=== PATIENT | female | born 1955 | race Caucasian/White ===

== ENCOUNTER → 2017-03-10 | Outpatient (CLI) | payer BC, OTHER ==
[2015-08-29 21:20] VITALS: BP 107/60
[~2017-03-10] MED LIST: ASPI-630 PO; CLOP75TA57 PO; CRESTOR40 MG PO; DEXL60CA2 PO; LISI40TA PO; NEBI10TA3 PO; POTA10CA PO; SPIR25TA3 PO; TICA90TA PO
--- NOTE | 2017-03-10 10:46 | RAD ---
Bone densitometry scan, 03/10/2017: History: Postmenopausal, possible osteoporosis The lumbar spine and right hip were examined utilizing a DEXA technique. The bone mineral density in the lumbar spine as measured from the L1-L4 levels is 0.93 g/sq cm. This is a T score of -2.1 compatible with osteopenia. The total T score at the right hip is -0.8 which is in the normal range. IMPRESSION: Osteopenia in the lumbar spine.
== END | disposition home or self-care (01) ==
LOC: DXRAD 09:55
PROVIDERS: ATTEND Physician Assistant
DX: M85.88 Other specified disorders of bone density and structure, other site (principal); M81.0 Age-related osteoporosis without current pathological fracture; Z78.0 Asymptomatic menopausal state
CPT/HCPCS: 77080

== ENCOUNTER → 2017-04-10 | Outpatient (CLI) | payer BC, OTHER ==
[2015-08-29 21:20] VITALS: BP 107/60
--- NOTE | 2017-04-10 15:01 | RAD ---
Renal ultrasound, 04/10/2017: History: Cystitis, recurrent UTIs The right kidney measures 9.8 cm in length while the left kidney measures 10.4 cm. There is no evidence of hydronephrosis or a renal mass. The renal parenchymal echogenicity is within normal limits. Limited views of the partially filled urinary bladder show no abnormality. IMPRESSION: No significant renal abnormality is detected.
== END | disposition home or self-care (01) ==
LOC: US 10:02
PROVIDERS: ATTEND Urology
DX: N30.10 Interstitial cystitis (chronic) without hematuria (principal); Z87.440 Personal history of urinary (tract) infections
CPT/HCPCS: 76770

== ENCOUNTER → 2017-05-11 | Outpatient (CLI) | payer BC, OTHER ==
[2015-08-29 21:20] VITALS: BP 107/60
--- NOTE | 2017-05-11 11:02 | RAD ---
DATE: 05/11/2017 EXAM: MAMMO JANET DIAG LT, BREAST LEFT HISTORY: 6 month follow-up COMPARISON: Screening examination November 14, 2016. Note is made of the diagnostic examination November 17, 2016 This study was interpreted with the benefit of Computerized Aided Detection (CAD). FINDINGS: Breast Density: HETERO The breast parenchyma Is heterogeneiously dense, which could reduce sensitivity of mammography. Breast parenchyma level C. On the MLO view of the left breast there is a well-defined mass superiorly. This is best demonstrated on the janet images, MLO image, image 40. No additional finding in the left breast is seen. Targeted ultrasound was performed of the left breast. At the 4:00 position of the breast 3 cm from the nipple is a well-defined oval mass compatible with a cyst measuring approximately 7 mm. It is not certain that this represents the mass that was seen on mammography. The mammographic mass measuring approximately 1.7 cm. IMPRESSION: Probable benign findings. Follow-up bilateral mammography is suggested in 6 months. Follow-up targeted ultrasound should also be considered. BI-RADS CATEGORY: 3 PROBABLE BENIGN FINDING(S-SHORT INTERVAL FOLLOW-UP SUGGESTED RECOMMENDED FOLLOW-UP: 6M 6 MONTH FOLLOW-UP PQRS compliance statement: Patient information was entered into a reminder system with a target due date October for the next mammogram. Mammography is a sensitive method for finding small breast cancers, but it does not detect them all and is not a substitute for careful clinical examination. A negative mammogram does not negate a clinically suspicious finding and should not result in delay in biopsying a clinically suspicious abnormality. "Our facility is accredited by the [employer] Mammography Program."
== END | disposition home or self-care (01) ==
LOC: MAMMO 08:39
PROVIDERS: ATTEND Physician Assistant
DX: R92.8 Other abnormal and inconclusive findings on diagnostic imaging of breast (principal)
CPT/HCPCS: 76641; G0206; G0279; 77061; 77065

== ENCOUNTER → 2017-10-23 | Outpatient (CLI) | payer BC, OTHER ==
[2015-08-29 21:20] VITALS: BP 107/60
--- NOTE | 2017-10-23 15:06 | RAD ---
DATE: 10/23/2017 EXAM: MAMMO JANET DIAG BILAT HISTORY: Follow-up left breast density, routine right breast screening COMPARISON: 05/11/2017, 11/17/2016, 11/14/2016 This study was interpreted with the benefit of Computerized Aided Detection (CAD). The breast parenchyma is dense, which could reduce the sensitivity of mammography. Breast parenchyma level density D. FINDINGS: 2-D and 3-D tomosynthesis imaging was performed in CC and MLO projections. The fibroglandular tissues are extremely dense and heterogeneous. No new or enlarging breast densities are seen. The fibroglandular pattern in the superior aspect of the left breast appears unchanged since studies dating back to 07/27/2015. Benign type calcifications are present. No suspicious microcalcifications have developed. Benign-appearing lymph node type densities are present in the axillary regions. IMPRESSION: Stable mammograms without evidence of malignancy. BI-RADS CATEGORY: 3 PROBABLY BENIGN FINDING(S)-SHORT INTERVAL FOLLOW-UP SUGGESTED RECOMMENDED FOLLOW-UP: 6M 6 MONTH FOLLOW-UP PQRS compliance statement: Patient information was entered into a reminder system with a target due date for the next mammogram. Mammography is a sensitive method for finding small breast cancers, but it does not detect them all and is not a substitute for careful clinical examination. A negative mammogram does not negate a clinically suspicious finding and should not result in delay in biopsying a clinically suspicious abnormality. "Our facility is accredited by the [employer] Mammography Program."
== END | disposition home or self-care (01) ==
LOC: MAMMO 13:56
PROVIDERS: ATTEND Physician Assistant
DX: R92.8 Other abnormal and inconclusive findings on diagnostic imaging of breast (principal); R92.1 Mammographic calcification found on diagnostic imaging of breast
CPT/HCPCS: G0204; G0279; 77062; 77066

== ENCOUNTER → 2018-04-23 | Outpatient (CLI) | payer BC, OTHER ==
[2015-08-29 21:20] VITALS: BP 107/60
[~2018-04-23] MED LIST changes: -SPIR25TA3 PO; +SPIR25TA5 PO
--- NOTE | 2018-04-23 11:16 | RAD ---
DATE: 04/23/2018 EXAM: MAMMO JANET DIAG LT HISTORY: 6 month follow-up COMPARISON: 10/23/2017, 05/11/2017, 11/17/2016 This study was interpreted with the benefit of Computerized Aided Detection (CAD). The breast parenchyma is dense, which could reduce the sensitivity of mammography. Breast parenchyma level density D. FINDINGS: 2-D and 3-D tomosynthesis imaging was performed in CC and MLO projections. The breasts are extremely dense and heterogeneous. No new or enlarging breast densities are seen. No spiculated mass or architectural distortion is identified. Benign type calcification is present. No suspicious microcalcifications have developed. IMPRESSION: Stable mammograms without evidence of malignancy. Bilateral mammography in 6 months and then at yearly intervals is suggested. BI-RADS CATEGORY: 3 PROBABLY BENIGN FINDING(S)-SHORT INTERVAL FOLLOW-UP SUGGESTED RECOMMENDED FOLLOW-UP: 6M 6 MONTH FOLLOW-UP PQRS compliance statement: Patient information was entered into a reminder system with a target due date for the next mammogram. Mammography is a sensitive method for finding small breast cancers, but it does not detect them all and is not a substitute for careful clinical examination. A negative mammogram does not negate a clinically suspicious finding and should not result in delay in biopsying a clinically suspicious abnormality. "Our facility is accredited by the [employer] Mammography Program."
== END | disposition home or self-care (01) ==
LOC: MAMMO 10:27
PROVIDERS: ATTEND Physician Assistant
DX: R92.8 Other abnormal and inconclusive findings on diagnostic imaging of breast (principal); I10 Essential (primary) hypertension; E78.5 Hyperlipidemia, unspecified
CPT/HCPCS: 77065; G0279; 77061

== ENCOUNTER → 2018-05-13 | Outpatient (CLI) | payer BC, OTHER ==
[2015-08-29 21:20] VITALS: BP 107/60
--- NOTE | 2018-05-13 12:15 | RAD ---
Clinical Indication: Screening Technique: Bone Densitometry was performed with dual photon absorption of the lumbar spine and proximal right femur. Comparison is from March 10, 2017. Findings: Lumbar Spine: Bone density is 0.902 g/cm2 for L1-L4. T-Score is -2.3 and Z-score -1.5. Age-matched percentage is 84 %. Right Femur Total: Bone density is 0.905 g/cm2. T-Score is -0.8 and Z-score -0.2. Age-matched percentage is 98 %. Spine bone marrow density has decreased by 2.7 percent from baseline. Right femur bone mineral density has decreased by 1.0 percent from baseline. Impression: 1. Osteopenia in the lumbar spine. 2. Right femur bone mineral density lower limit of normal. Electronically signed by: Wade Collier MD (05/13/2018 12:12 PM) [facility]
== END | disposition home or self-care (01) ==
LOC: DXRAD 09:55
PROVIDERS: ATTEND Physician Assistant
DX: Z13.820 Encounter for screening for osteoporosis (principal); M85.88 Other specified disorders of bone density and structure, other site; I10 Essential (primary) hypertension; E78.5 Hyperlipidemia, unspecified
CPT/HCPCS: 77080

== ENCOUNTER → 2019-10-06 | Outpatient (CLI) | payer BC, OTHER ==
[2015-08-29 21:20] VITALS: BP 107/60
--- NOTE | 2019-10-07 16:37 | RAD ---
DATE: 10/06/2019 EXAM: MAMMO JANET GLORIA JONESAT HISTORY: Routine screening COMPARISON: 07/27/2015, 11/14/2016, 10/23/2017 This study was interpreted with the benefit of Computerized Aided Detection (CAD). Breast Density: DENSE The breast parenchyma is dense, which could reduce the sensitivity of mammography. Breast parenchyma level density D. FINDINGS: Slight motion on this right cc image is suggested at the inner aspect. No suspicious calcifications, masses, or suspicious distortion. Parenchymal distribution is stable. IMPRESSION: Stable BI-RADS CATEGORY: 1 NEGATIVE RECOMMENDED FOLLOW-UP: 12M 12 MONTH FOLLOW-UP PQRS compliance statement: Patient information was entered into a reminder system with a target due date for the next mammogram. Mammography is a sensitive method for finding small breast cancers, but it does not detect them all and is not a substitute for careful clinical examination. A negative mammogram does not negate a clinically suspicious finding and should not result in delay in biopsying a clinically suspicious abnormality. "Our facility is accredited by the [employer] Mammography Program."
== END ==
LOC: MAMMO 12:58
PROVIDERS: ATTEND Physician Assistant
DX: Z09 Encounter for follow-up examination after completed treatment for conditions other than malignant neoplasm (principal); E78.00 Pure hypercholesterolemia, unspecified; I25.10 Atherosclerotic heart disease of native coronary artery without angina pectoris; Z90.710 Acquired absence of both cervix and uterus
CPT/HCPCS: 77066; G0279; 77062

== ENCOUNTER → 2019-12-14 | Outpatient (CLI) | payer BC, OTHER ==
[2015-08-29 21:20] VITALS: BP 107/60
[2019-12-14 08:29] LABS: CALCIUM 8.6 mg/dL (8.5-10.1); CREATININE 0.9 mg/dL (0.6-1.0); GFR 63.4; POTASSIUM 3.7 mmol/L (3.5-5.1)
== END | disposition home or self-care (01) ==
LOC: LAB 07:54
PROVIDERS: ATTEND Internal Medicine Cardiovascular Disease
DX: E78.5 Hyperlipidemia, unspecified (principal)
CPT/HCPCS: 36415; 80048; 80061

== ENCOUNTER → 2019-12-29 | Outpatient (CLI) | payer BC, OTHER ==
[2015-08-29 21:20] VITALS: BP 107/60
--- NOTE | 2019-12-29 11:17 | CARD ---
MR#: [id number] Date of Study: 12/29/2019 Ordering Physician: RANDY CHO, Referring Physician: RANDY CHO, Tech: Mary Peters [facility] APPROVED REPORT EXAM: Two-dimensional and M-mode echocardiogram with Doppler and color Doppler. Other Information Quality : Fair Technically limited study due to body habitus. INDICATION Cardiac Disease: CAD 2D DIMENSIONS RVDd2.2 (2.9-3.5cm)Left Atrium(2D)2.9 (1.6-4.0cm) IVSd1.2 (0.7-1.1cm)Aortic Root(2D)2.7 (2.0-3.7cm) LVDd3.8 (3.9-5.9cm)LVOT Diameter2.0 (1.8-2.4cm) PWd1.2 (0.7-1.1cm)LVDs2.4 (2.5-4.0cm) FS (%) 36.4 %SV42.3 ml LVEF(%)60.0 (>50%) Aortic Valve AoV Peak Hi.93.8cm/sAoV VTI21.4cm AO Peak GR.3.5mmHgLVOT Peak Hi.76.1cm/s LVOT VTI 16.24cmAO Mean GR.2mmHg TONIE (VMAX)2.92jn9LCR (VTI)2.33cm2 Mitral Valve MV E Jilhykgp13.7cm/sMV DECEL DAOF981mc MV A Xlustqvn75.8cm/sE/A Ratio1.2 Pulmonary Vein S1 Aqnekzwt97.8cm/sD2 Ioebvbtv93.0cm/s LEFT VENTRICLE The left ventricle is normal size. There is mild concentric left ventricular hypertrophy. The left ve ntricular systolic function is normal and the ejection fraction is within normal range. The Ejection Fraction is 55-60%. There is normal LV segmental wall motion. Transmitral Doppler flow pattern is Gra de I-abnormal relaxation pattern. RIGHT VENTRICLE The right ventricle is normal size. The right ventricular systolic function is normal. ATRIA The left atrium size is normal. The right atrium size is normal. The interatrial septum is intact wit h no evidence for an atrial septal defect or patent foramen ovale as noted on 2-D or Doppler imaging. AORTIC VALVE The aortic valve is calcified but opens well. Doppler and Color Flow revealed no significant aortic r egurgitation. There is no significant aortic valvular stenosis. MITRAL VALVE The mitral valve is calcified but opens well. Mitral annular calcification is mild. There is no evide nce of mitral valve prolapse. There is no mitral valve stenosis. Doppler and Color-flow revealed mild mitral regurgitation. TRICUSPID VALVE The tricuspid valve is normal in structure and function. Doppler and Color Flow revealed no tricuspid valve regurgitation noted. There is no tricuspid valve stenosis. PULMONIC VALVE The pulmonic valve is not well visualized. Doppler and Color Flow revealed trace pulmonic valvular re gurgitation. There is no pulmonic valvular stenosis. GREAT VESSELS The aortic root is normal in size. The ascending aorta is mildly dilated at 3.3 cm. The IVC was not v isualized. PERICARDIAL EFFUSION There is no evidence of significant pericardial effusion. Critical Notification Critical Value: No <Conclusion> The left ventricular systolic function is normal and the ejection fraction is within normal range. Th e Ejection Fraction is 55-60%. There is normal LV segmental wall motion. Doppler and Color-flow revealed mild mitral regurgitation. Technically difficult study Signed by : Randy Cho, Electronically Approved : 12/29/2019 11:17:04
== END | disposition home or self-care (01) ==
LOC: ECHO 09:34
PROVIDERS: ATTEND Internal Medicine Cardiovascular Disease
DX: I08.0 Rheumatic disorders of both mitral and aortic valves (principal); I25.10 Atherosclerotic heart disease of native coronary artery without angina pectoris
CPT/HCPCS: 93306

== ENCOUNTER → 2020-01-10 | Outpatient (CLI) | payer BC, OTHER ==
[2015-08-29 21:20] VITALS: BP 107/60
--- NOTE | 2020-01-10 11:43 | RAD ---
Procedure: Renal Duplex Complete Clinical information: Hypertension Technique: Multiple longitudinal and transverse 2D real time grayscale and Doppler ultrasound images through the kidneys were acquired. Findings: The kidneys are normal in size, contour, cortical thickness, and echogenicity. The right kidney measures 9.8 x 4.7 x 5.2 cm and left kidney measures 10.7 x 4.6 x 4.3 cm. There is no evidence of renal calculi. There is no evidence of hydronephrosis. There is no evidence of a renal mass. Doppler interrogation reveals normal flow within the renal arteries bilaterally. Abdominal aorta shows peak systolic velocity of 95 cm/s. Atherosclerotic plaque identified in the abdominal aorta. No aneurysmal dilation is seen. The renal to aortic ratio on the right is 1.1 and on the left 0.8. The right renal artery in the proximal mid and distal portions shows peak systolic velocities of and 106, 102 and 53 cm/s with resistive indices of 0.7, 0.6 and 0.7. The proximal, mid and distal left renal artery shows peak systolic velocities of 74, 65 and 67 cm/s with resistive indices of 0.7, 0.7 and 0.6. No evidence of elevated peak systolic velocities are noted. The renal artery to aortic ratio is normal bilaterally. No evidence of tardus parvus configuration or increased acceleration time to suggest renal artery stenosis seen. The urinary bladder is unremarkable. There is no evidence of bladder stones. There is no evidence of a bladder mass. Impression: 1. No hemodynamically significant renal artery stenosis is seen. Electronically signed by: Kenton Paulino MD (01/10/2020 11:40 AM) [id number]
== END | disposition home or self-care (01) ==
LOC: US 10:22
PROVIDERS: ATTEND Internal Medicine Cardiovascular Disease
DX: I10 Essential (primary) hypertension (principal)
CPT/HCPCS: 93975

== ENCOUNTER 2021-01-03 13:41 | Inpatient (IN) | payer BC, OTHER ==
[~2021-01-03] VITALS: Ht 162.6 cm; Wt 78.4 kg
[~2021-01-03 13:41] MED LIST changes: -LISI40TA PO; +LISI40TA6 PO
[2021-01-03] MEDS ORDERED: ONDANSETRON PF 4 MG/2 ML VIAL. IVP ONE (13:45)
[2021-01-03] MEDS ORDERED: IV NORMAL SALINE 1,000ML 1,000 ML IV ONE (13:45)
[2021-01-03] MEDS ORDERED: FAMOTIDINE 20 MG/2 ML VIAL IVP ONE (13:45)
[2021-01-03] MEDS ORDERED: CONTRAST GIVEN. MC PRN (14:15)
[2021-01-03] MEDS ORDERED: IOHEXOL 350 MG/ML 100 ML VIAL. IV ONE (14:15)
--- NOTE | 2021-01-03 14:25 | EKG ---
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
--- NOTE | 2021-01-03 14:37 | PHYS DOC ---
Past History Past Medical History: CAD, GERD, Hypertension, Stroke, Other Past Surgical History: Appendectomy, Hysterectomy, Tubal ligation, Other Additional Past Surgical Histo: Cath with stent Alcohol Use: None Drug Use: None General Adult EDM: Chief Complaint: NAUSEA/VOMITING/DIARRHEA HPI: HPI: Patient is a [age] year old [sex] who presents with [] Review of Systems: Review of Systems: Constitutional: Denies fever or chills Eyes: Denies redness or eye pain HENT: Denies nasal congestion or sore throat Respiratory: Denies cough or shortness of breath Cardiovascular: Denies chest pain or palpitations GI: Denies abdominal pain, nausea, or vomiting : Denies dysuria or hematuria Musculoskeletal: Denies back pain or joint pain Integument: Denies rash or skin lesions Neurologic: Denies headache, focal weakness or sensory changes Complete systems were reviewed and found to be within normal limits, except as documented in this note. Current Medications: Current Meds: Current Medications Medications (Trade) Dose Ordered Sig/Lane Start Time Stop Time Status Last Admin Dose Admin Famotidine (Pepcid Vial) 20 mg 1X ONCE 01/03/21 13:45 01/03/21 13:50 DC 01/03/21 14:26 20 MG Info (Do NOT chart on this entry -- for MONITORING) 1 each PRN DAILY PRN 01/03/21 14:15 01/05/21 14:14 Iohexol (Omnipaque 350 Mg/ml) 100 ml 1X ONCE 01/03/21 14:15 01/03/21 14:16 DC Ondansetron HCl (Zofran) 4 mg 1X ONCE 01/03/21 13:45 01/03/21 13:50 DC 01/03/21 14:24 4 MG Sodium Chloride 1,000 ml @ 1,000 mls/hr 1X ONCE 01/03/21 13:45 01/03/21 14:44 01/03/21 14:24 1,000 MLS/HR Allergies: Allergies: Allergies Coded Allergies Type Severity Reaction Last Updated Verified Sulfa (Sulfonamide Antibiotics) Allergy Intermediate 01/03/21 Yes Physical Exam: PE: Constitutional: Well developed, well nourished, no acute distress, non-toxic appearance HENT: Normocephalic, atraumatic Eyes: PERRL, EOMI, conjunctiva normal, no discharge Neck: Normal range of motion, no tenderness, supple Lungs & Thorax: No respiratory distress, equal chest rise and fall Abdomen: Soft, no tenderness Skin: Warm, dry, no erythema, no rash Back: No tenderness, no CVA tenderness Extremities: No tenderness, ROM intact, no edema Neurologic: Alert and oriented X 3, normal motor function, normal sensory function, no focal deficits noted Psychologic: Affect normal, judgment normal Current Patient Data: Vital Signs: Vital Signs Date Time Temp Pulse Resp B/P (MAP) Pulse Ox O2 Delivery O2 Flow Rate FiO2 01/03/21 13:45 97.7 54 16 103/57 (72) 94 Room Air EKG: EKG: @1408 Sinus bradycardia 50bpm, NO ST elevation, QRS 90ms, QT/QTc 472/433ms Radiology/Procedures: Radiology/Procedures: PROCEDURE: CT ANGIO CHEST W ABD PEL W/ EXAM: CT angiography of the chest, abdomen and pelvis with intravenous contrast. HISTORY: Pain. Shortness of air. TECHNIQUE: Computed tomographic images of the chest, abdomen and pelvis were obtained following the administration of intravenous contrast according to angiography protocol. Multiplanar reformatting was performed and three dim ensional maximum intensity projection images were obtained. *One or more of the following individualized dose reduction techniques were utilized for this examination: 1. Automated exposure control. 2. Adjustment of the mA and/or kV according to patient size. 3. Use of iterative reconstruction technique. COMPARISON: 12/28/2013. FINDINGS: There is no evidence of pulmonary embolism. There are enlarged central pulmonary arteries suggesting chronic pulmonary artery hypertension. There is cardiomegaly. The aorta is normal in caliber. There is no aortic dissection. There is calcified atherosclerotic plaque involving the coronary arteries, aorta and aortic arch great vessels. There are prominent mediastinal and bilateral hilar lymph nodes. There is no pneumothorax. There is no pleural effusion. There is groundglass opacities scattered throughout both lungs in a predominantly lower lobe distribution, suggesting atypical infiltrate. This may be superimposed on congestion. There is left basilar compressive atelectasis due to a large hiatal hernia and intrathoracic positioning of a portion of the stomach. There is no suspicious osseous lesion. There are degenerative changes involving the thoracic and lower cervical spine. Abdomen and pelvis: No suspicious hepatic lesion is seen. The gallbladder, pancreas, and adrenal glands are unremarkable. There is a splenule adjacent to an otherwise unremarkable spleen. There are small right renal cysts. These are simple in appearance. There is no hydronephrosis. There is no suspicious renal lesion. The bladder is unremarkable. There is no appendicitis. There is no bowel obstruction. There are few sigmoid diverticula. There is no evidence of diverticulitis. There is segmental colonic wall thickening likely due to underdistention or peristalsis. There is no convincing acute colitis. There are multiple prominent lymph nodes throughout the root of the mesentery. The aorta is normal in caliber. There is no aortic dissection. There is a circumaortic left renal vein, an incidental finding. There is an accessory right renal artery. There is no evidence of arterial occlusion. There is mild calcified atherosclerotic plaque at the origin of the superior mesenteric artery and renal arteries with less than 50 percent stenosis. There is no acute osseous finding. IMPRESSION: 1. No evidence of pulmonary embolism. 2. Ground glass infiltrate throughout both lungs suggesting atypical pneumonia. This may be superimposed on congestion. 3. Sigmoid diverticulosis. 4. Segmental colonic wall thickening likely due to underdistention or peristalsis. There is no convincing acute colitis. 5. Prominent mediastinal, hilar and mesenteric lymph nodes. These are nonspecific and may be physiologic or reactive. These are not clearly within limits to suggest underlying neoplasm. 6. Small renal cysts. Follow-up is not routinely recommended for simple cysts. Electronically signed by: Lisette Abrams MD (01/03/2021 3:08 PM) [id number] Heart Score: C/O Chest Pain: N/A Course & Med Decision Making: Course & Med Decision Making Pertinent Labs and Imaging studies reviewed. (See chart for details) Patient requiring admission for further evaluation and treatment. Discussed with Dr. Guerrero (hospitalist) who is in agreement with admission. Discussed findings and plan with patient, who acknowledges understanding and agreement. COVID-19 CRITERIA: The patient was evaluated during the global COVID-19 pandemic, and that diagnosis was suspected/considered upon their initial presentation. Their evaluation, treatment and testing was consistent with current guidelines for patients who present with complaints or symptoms that may be related to COVID-19. Dragon Disclaimer: Dragon Disclaimer: This electronic medical record was generated, in whole or in part, using a voice recognition dictation system. Departure Departure: Impression: Primary Impression: Syncope Qualified Codes: R55 - Syncope and collapse Additional Impressions: Nausea vomiting and diarrhea Renal insufficiency Atypical pneumonia Suspected 2019 novel coronavirus infection Hypokalemia Hypomagnesemia Disposition: 09 ADMITTED INPT THIS HOSP Admitting Physician: Maya Guerrero Condition: STABLE Referrals: TRINI CASE (PCP) COVID-19 Assessment COVID-19 Patient Risks: Age 65 or older: No Sign of co-morbidity: Yes Exp to person + for COVID: Yes Exp to PUI: No Travel from affected area: No Lower respiratory symptoms: No Fever: No Other: Yes PPE Use: Full PPE with N95 mask or PAPR: Yes JOSE L WARD DO Jan 03, 2021 14:37
[2021-01-03 14:43] LABS: BASO % 0 % (0-3); EOS % 0 % (0-3); HEMATOCRIT 31.1 % (36.0-47.0); HEMOGLOBIN 10.7 g/dL (12.0-15.5); LYMPH # 1.2 x10^3/uL (1.0-4.8); LYMPH % 30 % (24-48); MEAN CORPUSCULAR HEMOGLOBIN 29 pg (25-35); MEAN CORPUSCULAR HGB CONC 34 g/dL (31-37); MEAN CORPUSCULAR VOLUME 84 fL (79-100); MONO # 0.5 x10^3/uL (0.0-1.1); MONO % 14 % (0-9); NEUT # 2.1 x10^3uL (1.8-7.7); NEUT % 55 % (31-73); PLATELET COUNT 161 x10^3/uL (140-400); RED BLOOD COUNT 3.71 x10^6/uL (3.50-5.40); RED CELL DISTRIBUTION WIDTH 14.4 % (11.5-14.5); WHITE BLOOD COUNT 3.9 x10^3/uL (4.0-11.0)
[2021-01-03 14:55] LABS: CALCIUM 8.8 mg/dL (8.5-10.1); CREATININE 1.6 mg/dL (0.6-1.0); GFR 32.6
[2021-01-03 15:10] LABS: ALBUMIN 3.9 g/dL (3.4-5.0); ALBUMIN/GLOBULIN RATIO 1.1 (1.0-1.7); MAGNESIUM 1.5 mg/dL (1.8-2.4); TOTAL BILIRUBIN 0.7 mg/dL (0.2-1.0); TOTAL PROTEIN 7.6 g/dL (6.4-8.2)
--- NOTE | 2021-01-03 15:10 | RAD ---
EXAM: CT angiography of the chest, abdomen and pelvis with intravenous contrast. HISTORY: Pain. Shortness of air. TECHNIQUE: Computed tomographic images of the chest, abdomen and pelvis were obtained following the a dministration of intravenous contrast according to angiography protocol. Multiplanar reformatting was performed and three dimensional maximum intensity projection images were obtained. *One or more of the following individualized dose reduction techniques were utilized for this examina tion: 1. Automated exposure control. 2. Adjustment of the mA and/or kV according to patient size. 3. Use of iterative reconstruction technique. COMPARISON: 12/28/2013. FINDINGS: There is no evidence of pulmonary embolism. There are enlarged central pulmonary arteries s uggesting chronic pulmonary artery hypertension. There is cardiomegaly. The aorta is normal in calibe r. There is no aortic dissection. There is calcified atherosclerotic plaque involving the coronary ar teries, aorta and aortic arch great vessels. There are prominent mediastinal and bilateral hilar lymp h nodes. There is no pneumothorax. There is no pleural effusion. There is groundglass opacities scattered thro ughout both lungs in a predominantly lower lobe distribution, suggesting atypical infiltrate. This ma y be superimposed on congestion. There is left basilar compressive atelectasis due to a large hiatal hernia and intrathoracic positioning of a portion of the stomach. There is no suspicious osseous lesi on. There are degenerative changes involving the thoracic and lower cervical spine. Abdomen and pelvis: No suspicious hepatic lesion is seen. The gallbladder, pancreas, and adrenal glan ds are unremarkable. There is a splenule adjacent to an otherwise unremarkable spleen. There are smal l right renal cysts. These are simple in appearance. There is no hydronephrosis. There is no suspicio us renal lesion. The bladder is unremarkable. There is no appendicitis. There is no bowel obstruction . There are few sigmoid diverticula. There is no evidence of diverticulitis. There is segmental colon ic wall thickening likely due to underdistention or peristalsis. There is no convincing acute colitis . There are multiple prominent lymph nodes throughout the root of the mesentery. The aorta is normal in caliber. There is no aortic dissection. There is a circumaortic left renal vein, an incidental findi ng. There is an accessory right renal artery. There is no evidence of arterial occlusion. There is mi ld calcified atherosclerotic plaque at the origin of the superior mesenteric artery and renal arterie s with less than 50 percent stenosis. There is no acute osseous finding. IMPRESSION: 1. No evidence of pulmonary embolism. 2. Ground glass infiltrate throughout both lungs suggesting atypical pneumonia. This may be superimpo sed on congestion. 3. Sigmoid diverticulosis. 4. Segmental colonic wall thickening likely due to underdistention or peristalsis. There is no convin cing acute colitis. 5. Prominent mediastinal, hilar and mesenteric lymph nodes. These are nonspecific and may be physiolo gic or reactive. These are not clearly within limits to suggest underlying neoplasm. 6. Small renal cysts. Follow-up is not routinely recommended for simple cysts. Electronically signed by: Lisette Abrams MD (01/03/2021 3:08 PM) [id number]
[2021-01-03] MEDS ORDERED: AZITHROMYCIN 500 MG in IV NORMAL SALINE 250ML 250 ML IV ONE (15:15)
[2021-01-03] MEDS ORDERED: cefTRIAXone SODIUM 1 GM VIAL ONE (15:25)
[2021-01-03] MEDS ORDERED: AZITHROMYCIN 500 MG VIAL. IV ONE (15:25)
[2021-01-03] MEDS ORDERED: IV NORMAL SALINE 50ML 50 ML ONE (15:25)
[2021-01-03] MEDS ORDERED: IV NORMAL SALINE 250ML 250 ML ONE (15:25)
[2021-01-03] MEDS ORDERED: POTASSIUM BICARB 20 MEQ EFFERVESCENT TABLET. PO ONE (15:30)
[2021-01-03] MEDS ORDERED: DEXAMETHASONE SOD PHOS 10 MG/ML VIAL. IVP ONE (15:30)
[2021-01-03] MEDS ORDERED: MAGNESIUM SULFATE 2GM 50 ML IV ONE (15:30)
[2021-01-03] MEDS: IV NORMAL SALINE 1,000ML 1,000 ML IV SCH (15:46)
[2021-01-03] MEDS ORDERED: POTASSIUM CHLORIDE 10 MEQ TABLET.ER. PO ONE (16:30)
[2021-01-03] MEDS ORDERED: BUPIVACAINE MPF 0.5% 10 ML VIAL. IJ ONE (16:45)
[2021-01-03 19:54] VITALS: BP 129/84
--- NOTE | 2021-01-03 21:57 | NUR ---
PT ADMITTED TO RM 103 VIA EMS ACCOMPANIED BY ER STAFF. PT AMBULATED FROM RHALL TO BED INDEPENDENTLY. VS OBTAINED. PT AOX4. PT DENIES ANY COMPLAINTS OF PAIN AT THIS TIME. PT STATED "I JUST FEEL SO FATIGUED." POC DISCUSSED W/ VERBAL UNDERSTANDING. PT HAD COMPLAINTS OF HUNGER BUT FEARED SHE WOULD GET NAUSEAS. PT WAS GIVEN SOUP AND CRACKERS. PT TOLERATED WELL. CALL LIGHT IN REACH. WILL CONTINUE TO MONITOR.
[2021-01-03] MEDS ORDERED: CHLO25TA9 PO (22:04)
[2021-01-03] MEDS ORDERED: PANT40TA6 PO (22:04)
[2021-01-03] MEDS ORDERED: CLOP75TA PO (22:04)
[2021-01-03] MEDS ORDERED: CARV25TA2 PO (22:04)
[2021-01-03 22:57] VITALS: BP 124/78
[2021-01-04] MEDS: ACETAMINOPHEN 325 MG TABLET PO PRN ×2 (00:06→08:06)
[2021-01-04] MEDS: IV NORMAL SALINE 1,000ML 1,000 ML IV SCH ×2 (01:30→16:49)
[2021-01-04] MEDS: CLOPIDOGREL BISULFATE 75 MG TABLET PO SCH (08:06)
[2021-01-04] MEDS: PANTOPRAZOLE 40 MG TABLET. PO SCH (08:06)
[2021-01-04] MEDS: CARVEDILOL 12.5 MG TABLET PO SCH ×2 (08:08→16:48)
[2021-01-04 08:39] LABS: HEMATOCRIT 29.4 % (36.0-47.0); HEMOGLOBIN 10.1 g/dL (12.0-15.5); RED BLOOD COUNT 3.48 x10^6/uL (3.50-5.40); RED CELL DISTRIBUTION WIDTH 14.4 % (11.5-14.5); WHITE BLOOD COUNT 2.9 x10^3/uL (4.0-11.0)
[2021-01-04 08:53] LABS: ALBUMIN 3.3 g/dL (3.4-5.0); ALBUMIN/GLOBULIN RATIO 0.9 (1.0-1.7); CALCIUM 7.9 mg/dL (8.5-10.1); CREATININE 1.2 mg/dL (0.6-1.0); TOTAL PROTEIN 6.9 g/dL (6.4-8.2)
[2021-01-04 08:54] LABS: GFR 45.4; POTASSIUM 3.8 mmol/L (3.5-5.1); TOTAL BILIRUBIN 0.4 mg/dL (0.2-1.0)
[2021-01-04 08:58] VITALS: BP 131/79
[2021-01-04] MEDS ORDERED: LISINOPRIL 20 MG TABLET PO SCH (09:00)
[2021-01-04 14:12] VITALS: BP 125/76
[2021-01-04] MEDS ORDERED: ENOXAPARIN 40 MG/0.4 ML SYRINGE. SQ SCH (16:30)
--- NOTE | 2021-01-04 16:37 | HP ---
ADMIT DATE: 01/04/2021 HISTORY OF PRESENT ILLNESS: The patient is a 65-year-old female patient who presented to the Emergency Room, complaining of nausea, vomiting, and diarrhea. She also has had a syncopal episode at home. She was brought to the Emergency Room where she was evaluated, has had extensive investigation including lab work as well as imaging. Her CT scan of the chest, abdomen, and pelvis showed no evidence of pulmonary emboli. She has ground glass infiltrates throughout both lungs suggesting atypical pneumonia. This may be superimposed on congestion. Sigmoid diverticulosis, segmental colonic wall thickening, likely due to under distention or peristalsis. There is no convincing acute colitis. The patient has prominent mediastinal hilar and mesenteric lymph nodes that are nonspecific and may be physiological reactivity. These are not clearly within limits to suggest underlying neoplasm. She has small renal cyst. Her lab work showed hypokalemia, impaired kidney function and she has also leukopenia. She was tested for COVID-19 and apparently was detected and the patient was admitted with syncopal episode. She was admitted also with renal insufficiency and atypical pneumonia, hypokalemia, and hypomagnesemia that were replenished. She was treated with IV antibiotic in the form of ceftriaxone and Zithromax and was continued on her other medications. PAST MEDICAL HISTORY: Significant for hypertension, hyperlipidemia, and embolic stroke with left-sided weakness. 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 She apparently had a stress test done that was normal; however, she underwent cardiac catheterization, as her sister had a normal stress test and a cardiac catheterization was found to have 90% stenosis and underwent PCI with stent deployment. PAST SURGICAL HISTORY: Significant for appendectomy, tubal ligation, total abdominal hysterectomy, bilateral salpingo-oophorectomy, surgery for her left-sided facial droop, and left wrist and left ankle fracture, status post open reduction and internal fixation. She also underwent colonoscopy and polypectomy. ALLERGIES: SHE IS ALLERGIC TO SULFA DRUGS. FAMILY HISTORY: She has 2 older sisters and 1 younger brother. One of her older sister has diabetes and hypertension. The other one is known to have hypertension. Her younger sister has coronary artery disease and underwent stent deployment at the age of 53. Her one brother who is older has hypertriglyceridemia. One brother at the age of 57 because of complication of myocardial infarction and coronary artery bypass graft surgery. Her father at the age of 62 because of lung cancer. Mother at the age of 89. Her first heart attack was at the age of 55. She underwent coronary artery bypass graft surgery. SOCIAL HISTORY: She is , has 2 sons. Never smoked and never drank alcohol. She is retired from the [employer]. 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 REVIEW OF SYSTEMS: The patient complained of dry heaves and recurrent bouts of diarrhea and abdominal pain. PHYSICAL EXAMINATION: GENERAL: On arrival to the Emergency Room, the patient was pale, but no jaundice or cyanosis. No lymphadenopathy, no thyromegaly. No jugular venous distension. No limb edema. VITAL SIGNS: Her heart rate was 54, blood pressure was 103/57, temperature 97.7, respiratory rate was 16, and oxygen saturation was 94%. HEAD, EYES, EARS, NOSE AND THROAT: Showed normocephalic, atraumatic. NECK: Supple. HEART: Showed normal first and second heart sounds. No gallop, rub or murmur. CHEST: Clear to auscultation. No crepitation or rhonchi. ABDOMEN: Distended, soft, nontender. NEUROLOGIC: She was awake, alert, responding appropriately. All cranial nerves intact. EXTREMITIES: She moves extremities without difficulty. She ambulates without assistance or assistive devices. LABORATORY DATA: Her lab work on admission showed a white cell count of 3900, hemoglobin 10.7, hematocrit 31, MCV 84 and platelet count of 161,000. Her chemistry showed a serum sodium 134, potassium 3, chloride 97, bicarbonate 23, anion gap of 14, BUN 25, creatinine 1.6, estimated GFR was 32 mL per minute. Her glucose 141, calcium was 8.8. Lactic acid was 1.4, magnesium was 1.5. Total bilirubin, AST, ALT, alkaline phosphatase were normal. Her total protein was 7.6, albumin 3.9. Lipase was 172. Her prothrombin time, INR and aPTT were normal and she has had her coronavirus by PCR was detectable. ASSESSMENT AND PLAN: In summary, this is a 65-year-old female patient, who was admitted with syncope, acute kidney injury, secondary to recurrent bouts of nausea, vomiting and diarrhea. She had atypical pneumonia that proved to be coronavirus by PCR, has hypokalemia, and hypomagnesemia that were replenished. The patient has received 2 grams of magnesium sulfate and treated with azithromycin as well as ceftriaxone. PLAN: To continue with IV antibiotic and we will follow her closely and decide on further management accordingly. COSTA PAGAN MD DR: JAIMIE/devan JOB#: [id number] / [id number]
[2021-01-04] MEDS: DEXAMETHASONE SOD PHOS 4 MG/ML VIAL. IVP SCH (16:47)
[2021-01-04] MEDS: AZITHROMYCIN 250 MG TABLET. PO SCH (16:49)
[2021-01-04 19:42] VITALS: BP 109/69
[2021-01-04] MEDS ORDERED: ATORVASTATIN CALCIUM 20 MG TABLET PO SCH (21:00)
--- NOTE | 2021-01-04 21:06 | PN ---
DATE: 01/04/2021 SUBJECTIVE: The patient is resting, slightly propped up in bed, in no apparent distress. She continued to have abdominal discomfort and diarrhea. Denied any nausea or vomiting. Some dry heaves. OBJECTIVE: GENERAL: When I examined her, she looked pale, but not jaundice, cyanosis from thyromegaly. No jugular venous distension. No limb edema. VITAL SIGNS: Her heart rate was 59, blood pressure was 125/76, temperature 97.8, respiratory rate was 18 and oxygen saturation was 94% on room air. HEAD, EYES, EARS, NOSE, THROAT: Showed normocephalic, atraumatic. NECK: Supple. HEART: Showed normal first and second heart sounds. No gallop or murmur. CHEST: Clear to auscultation. No crepitation or rhonchi. ABDOMEN: Distended, soft, mild diffuse tenderness. No guarding or rigidity. No organomegaly. All hernial orifice intact. Bowel sounds normal. NEUROLOGIC: She was awake, alert, responding appropriately. All cranial nerves intact. She moves extremities without difficulty. Her intake over the last 24 hours was incompletely recorded. LABORATORY DATA: Her lab work this morning showed a white cell count is down to 2900, hemoglobin 10, hematocrit 30, MCV 85 and platelet count of 140,000. Her chemistry showed a serum sodium 135, potassium 3.8, chloride 102, bicarbonate 19, anion gap of 14, BUN 27, creatinine 1.2, estimated GFR was 45 mL per minute. Her glucose 145, calcium was 7.9. Total bilirubin, AST, ALT, alkaline phosphatase were normal. Total protein 6.9, albumin was 3.3. ASSESSMENT: In summary, this is a 65-year-old female patient, who was admitted with syncopal episode, acute kidney injury due to recurrent nausea, vomiting and diarrhea. She was found to have hypokalemia, hypomagnesemia and impaired kidney function. Her CT scan of the chest, abdomen and pelvis is consistent with a viral atypical pneumonia with ground glass infiltrates throughout both lungs suggesting atypical pneumonia. PLAN: My plan is to continue with IV antibiotic. Continue to monitor her electrolyte and IV fluid. We will repeat all her lab works again and if she has diarrhea subsided and she is tolerating food and did not require any oxygen, we might discharge her home. COSTA PAGAN MD DR: Carmen JOB#: [id number] / [id number]
[2021-01-04] MEDS ORDERED: ACETAMINOPHEN 325 MG TABLET PO PRN (21:15)
[2021-01-04 23:35] VITALS: BP 116/70
[2021-01-05 05:45] VITALS: BP 118/69
[2021-01-05 06:49] LABS: ALBUMIN 3.2 g/dL (3.4-5.0); CALCIUM 7.9 mg/dL (8.5-10.1); CREATININE 1.1 mg/dL (0.6-1.0); GFR 50.2; POTASSIUM 3.9 mmol/L (3.5-5.1); TOTAL BILIRUBIN 0.3 mg/dL (0.2-1.0); TOTAL PROTEIN 6.5 g/dL (6.4-8.2)
[2021-01-05 07:00] LABS: HEMATOCRIT 25.9 % (36.0-47.0); HEMOGLOBIN 9.2 g/dL (12.0-15.5); RED BLOOD COUNT 3.12 x10^6/uL (3.50-5.40); RED CELL DISTRIBUTION WIDTH 14.6 % (11.5-14.5); WHITE BLOOD COUNT 7.7 x10^3/uL (4.0-11.0)
[2021-01-05] MEDS: PANTOPRAZOLE 40 MG TABLET. PO SCH (07:09)
[2021-01-05] MEDS: AZITHROMYCIN 250 MG TABLET. PO SCH (07:09)
[2021-01-05] MEDS: CLOPIDOGREL BISULFATE 75 MG TABLET PO SCH (07:09)
[2021-01-05] MEDS: DEXAMETHASONE SOD PHOS 4 MG/ML VIAL. IVP SCH (07:09)
[2021-01-05] MEDS: CARVEDILOL 12.5 MG TABLET PO SCH (07:15)
[2021-01-05] MEDS ORDERED: LACTOBACILLUS RHAMNOSUS GG 1 CAPSULE. PO SCH (09:00)
[2021-01-05 11:00] VITALS: BP 121/71
[2021-01-05] MEDS ORDERED: LEVO500T8 PO (13:55)
[2021-01-05] MEDS ORDERED: AMLO-187 PO (13:55)
[2021-01-05] MEDS ORDERED: DEXA4TAB PO (13:59)
--- NOTE | 2021-01-05 14:10 | NUR ---
PATIENT IS DISCHARGED HOME WITH SELF CARE. PT IS GIVEN ALL WRITTEN DISCHARGE AND FOLLOW UP INSTRUCTIONS. PTS IV IS REMOVED AND TELE MONITOR D/C'D PT IS ESCORTED OFF OF UNIT ACCOMPANIED BY STAFF.
--- NOTE | 2021-01-05 14:18 | DS ---
DATE OF DISCHARGE: 01/05/2021 HOSPITAL COURSE: The patient is resting, slightly propped up in bed, no apparent distress. She did well this morning. Apparently, she had an episode of abdominal cramping and diarrhea. However, she continued to maintain her oxygen saturation at 96% on room air. Does have some cough, but denied any chills, rigors, or fever. Denied any shortness of breath. The patient would like to go home. She does not require any oxygen. Her lab work actually has improved. Her white cell count is up to 7.7. Her kidney function has improved. Her creatinine came down from 1.6 to 1.1 and her electrolytes and liver enzymes are all normal. A decision was made to discharge her home to continue with tapering course of steroids, oral Levaquin as well as amlodipine. PHYSICAL EXAMINATION: GENERAL: When I saw her this afternoon, she looked well and was clearly in no apparent respiratory distress. She was pale, but no jaundice, cyanosis or thyromegaly. No jugular venous distension. No limb edema. VITAL SIGNS: Her heart rate was 60, blood pressure was 121/71, temperature was 98.1, respiratory rate 20, and oxygen saturation was 96%. HEAD, EYES, EARS, NOSE AND THROAT: Showed normocephalic, atraumatic. NECK: Supple. HEART: Showed normal first and second heart sounds. No gallop, rub or murmur. CHEST: Clear to auscultation. No crepitation or rhonchi. ABDOMEN: Distended, soft, nontender. NEUROLOGIC: She is awake, alert, responding appropriately. All cranial nerves intact. She moves extremities without difficulty. She ambulates without assistance or assistive devices. Her intake was 1340, output was 350. LABORATORY DATA: As of this morning, her white cell count was 7700, hemoglobin 9, hematocrit 26, MCV 83 and platelet count of 148,000. Serum sodium was 135, potassium 3.9, chloride 102, bicarbonate 21, anion gap of 12, BUN 21, creatinine 1.1, estimated GFR was 50 mL per minute, her glucose was 153, calcium was 7.9. Total bilirubin, AST, ALT, alkaline phosphatase were normal. Her total protein was 6.5, albumin 3.2. DISCHARGE MEDICATIONS: The patient was discharged home on amlodipine besylate 10 mg once a day. I have advised her to discontinue lisinopril and chlorthalidone. She will be discharged also on Levaquin 500 mg once a day for 7 days, dexamethasone 4 mg once a day for 3 days and 2 mg once a day for 3 days. She was also discharged on carvedilol 25 mg twice a day, Plavix 75 mg once a day, Protonix 40 mg once a day, and Crestor 40 mg once a day. FINAL DISCHARGE DIAGNOSES: 1. COVID-19 infection. 2. Syncopal episode. No further episodes of syncope reported in the hospital. 3. Acute kidney injury, resolved. 4. Hypokalemia, resolved. 5. Hypomagnesemia, resolved. The patient should continue treatment for atypical pneumonia with oral Levaquin. I am not sure whether Zithromax is causing some of her cramping abdominal that is why I changed her to Levaquin. COSTA PAGAN MD DR: JAIMIE/devan JOB#: [id number] / [id number]
== END 2021-01-05 14:10 | disposition home or self-care (01) | DRG 177 ==
LOC: ER 13:41 → 1 SOUTH 15:15
PROVIDERS: ADMIT Internal Medicine; ATTEND Internal Medicine
DX: U07.1 COVID-19 (principal); J18.9 Pneumonia, unspecified organism; I69.354 Hemiplegia and hemiparesis following cerebral infarction affecting left non-dominant side; N17.9 Acute kidney failure, unspecified; E11.9 Type 2 diabetes mellitus without complications; E78.5 Hyperlipidemia, unspecified; E83.42 Hypomagnesemia; E87.6 Hypokalemia; I10 Essential (primary) hypertension; I25.10 Atherosclerotic heart disease of native coronary artery without angina pectoris; K57.30 Diverticulosis of large intestine without perforation or abscess without bleeding; N28.1 Cyst of kidney, acquired; Z80.1 Family history of malignant neoplasm of trachea, bronchus and lung; Z82.49 Family history of ischemic heart disease and other diseases of the circulatory system; Z83.3 Family history of diabetes mellitus; Z90.49 Acquired absence of other specified parts of digestive tract; Z90.710 Acquired absence of both cervix and uterus; G51.0 Bell's palsy; K21.9 Gastro-esophageal reflux disease without esophagitis
CPT/HCPCS: 36415; 71275; 74177; 80053; 82553; 83605; 83690; 83735; 84484; 85025; 85027; 85379; 85610; 85730; 86140; 87040; 93005; 96361; 96374; 96375; J0456; J0696; J1100; J1650; J2405; J3475; J3490; J7050; Q9967; U0003; 99285-25; J7030

== ENCOUNTER 2021-01-12 09:56 | Emergency (ER) | payer BC, OTHER ==
[~2021-01-12] VITALS: Ht 162.6 cm; Wt 74.2 kg
[~2021-01-12 09:56] MED LIST changes: +AMLO-187 PO; +CARV25TA2 PO; +CHLO25TA9 PO; +CLOP75TA PO; +DEXA4TAB PO; +LEVO500T8 PO; +PANT40TA6 PO
--- NOTE | 2021-01-12 10:03 | PHYS DOC ---
Past History Past Medical History: CAD, GERD, Hypertension, Stroke, Other Past Surgical History: Appendectomy, Hysterectomy, Tubal ligation, Other Additional Past Surgical Histo: Cath with stent Alcohol Use: None Drug Use: None Adult General HPI HPI Patient is a 65-year-old female presenting via POV for shortness of breath. Patient lives at home with who tested positive for COVID-19 approximately 2 weeks ago. Several days after his diagnosis, patient started exhibiting URI-like symptoms. These progressed and she subsequent had syncopal episode at home prompting ER evaluation on 01/03/2021. Patient tested positive for Covid and was subsequently admitted for antibiotic therapy and IV fluid rehydration for LEXY at our hospital, [facility]. Patient received appropriate Rocephin and azithromycin treatment, adequately stabilized and discharged home on 01/05/2021 with a 6-day taper of dexamethasone and a 7-day course of Levaquin that ended today. Nonetheless, patient reports being discharged home and having continued fatigue, weakness, generalized aches and pains and shortness of breath. Denies any fever, syncopal episodes but has continued feelings of shortness of breath and overall chest tightness and pressure. She cannot take symptoms anymore this morning prompting her to come to our ER for evaluation Review of Systems Review of Systems Fourteen body systems of review of systems have been reviewed. See HPI for pertinent positives and negative responses, other polk all other systems are negative, non-pertinent or non-contributory Allergies Allergies Allergies Coded Allergies Type Severity Reaction Last Updated Verified Sulfa (Sulfonamide Antibiotics) Allergy Intermediate 01/03/21 Yes Physical Exam Physical Exam Constitutional: Well developed, well nourished, no acute distress, non-toxic appearance. HENT: Normocephalic, atraumatic, bilateral external ears normal, oropharynx moist, no oral exudates, nose normal. Eyes: PERRLA, EOMI, conjunctiva normal, no discharge. Neck: Normal range of motion, no tenderness, supple, no stridor. Cardiovascular: Heart rate regular, sinus rhythm, no murmurs rubs or gallops Lungs & Thorax: Bilateral breath sounds clear to auscultation Abdomen: Bowel sounds normal, soft, no tenderness, no masses, no pulsatile masses. Nonsurgical abdomen, no peritoneal signs Skin: Warm, dry, no erythema, no rash. Back: No tenderness, no CVA tenderness. Extremities: No tenderness, no cyanosis, no clubbing, ROM intact, no edema. Neurologic: Alert and oriented X 3, grossly normal motor & sensory function, no focal deficits noted. Psychologic: Affect normal, judgement normal, mood normal. Current Patient Data Vital Signs Vital Signs Date Time Temp Pulse Resp B/P (MAP) Pulse Ox O2 Delivery O2 Flow Rate FiO2 01/12/21 10:10 98.1 98 28 100/73 (82) 77 Room Air Lab Results Laboratory Tests Test 01/12/21 10:30 01/12/21 10:50 White Blood Count 4.0 x10^3/uL Red Blood Count 4.16 x10^6/uL Hemoglobin 12.0 g/dL Hematocrit 35.4 % Mean Corpuscular Volume 85 fL Mean Corpuscular Hemoglobin 29 pg Mean Corpuscular Hemoglobin Concent 34 g/dL Red Cell Distribution Width 14.7 % Platelet Count 246 x10^3/uL Neutrophils (%) (Auto) 80 % Lymphocytes (%) (Auto) 15 % Monocytes (%) (Auto) 5 % Eosinophils (%) (Auto) 0 % Basophils (%) (Auto) 0 % Neutrophils # (Auto) 3.2 x10^3uL Lymphocytes # (Auto) 0.6 x10^3/uL Monocytes # (Auto) 0.2 x10^3/uL Eosinophils # (Auto) 0.0 x10^3/uL Basophils # (Auto) 0.0 x10^3/uL Sodium Level 135 mmol/L Potassium Level 3.8 mmol/L Chloride Level 97 mmol/L Carbon Dioxide Level 26 mmol/L Anion Gap 12 Blood Urea Nitrogen 53 mg/dL Creatinine 1.8 mg/dL Estimated GFR (Cockcroft-Gault) 28.4 BUN/Creatinine Ratio 29 Glucose Level 153 mg/dL Lactic Acid Level 2.5 mmol/L Calcium Level 9.4 mg/dL Magnesium Level 2.4 mg/dL Total Bilirubin 0.6 mg/dL Aspartate Amino Transf (AST/SGOT) 30 U/L Alanine Aminotransferase (ALT/SGPT) 28 U/L Alkaline Phosphatase 65 U/L Troponin I Quantitative < 0.017 ng/mL KH-Eot-D-Type Natriuretic Peptide 190 pg/mL Total Protein 8.0 g/dL Albumin 3.5 g/dL Albumin/Globulin Ratio 0.8 Blood Gas pH 7.42 Blood Gas PCO2 29 mmHg Blood Gas PO2 97 mmHg Blood Gas HCO3 19 mmol/L Arterial Bld O2 Saturation (Calc) 98 % FiO2 60 % Current Medications Medications (Trade) Dose Ordered Sig/Lane Route PRN Reason Start Time Stop Time Status Last Admin Dose Admin Sodium Chloride 1,000 ml @ 1,000 mls/hr Q1H IV 01/12/21 10:45 01/12/21 11:44 DC 01/12/21 10:35 Albuterol/ Ipratropium (Duoneb) 3 ml 1X ONCE NEB 01/12/21 10:45 01/12/21 11:09 DC Aspirin (Aspirin Chewable) 162 mg 1X ONCE PO 01/12/21 10:45 01/12/21 10:57 DC 01/12/21 11:31 Albuterol Sulfate (Ventolin Hfa Inhaler) 1 puff 1X ONCE INH 01/12/21 11:15 01/12/21 11:16 DC 01/12/21 11:28 Sodium Chloride 1,000 ml @ 1,000 mls/hr 1X ONCE IV 01/12/21 11:30 01/12/21 12:29 01/12/21 11:46 Sodium Chloride 500 ml @ 0 mls/hr 1X ONCE IV 01/12/21 11:45 01/12/21 11:46 DC 01/12/21 11:45 EKG EKG EKG ordered and interpreted by myself at 1043 hrs. as sinus rhythm at 91 bpm, QTC 459 otherwise unremarkable intervals, no axis deviation, nonspecific ST wave abnormalities in leads III and aVF, no STEMI Prior EKG obtained 07/10/2015 obtained and used for comparison, similar in appearance, grossly unchanged from EKG obtained today Radiology/Procedures Radiology/Procedures PROCEDURE: PORTABLE CHEST 1V Exam performed: One view chest. Indication: Reason: SHOB / Spl. Instructions: / History: Date of Service: 01/12/2021 10:46 AM Comparison: CT angiogram chest from 01/03/2021 and single view chest from 2014. Single AP upright portable view chest findings: Cardiomediastinal silhouette is within limits of normal. Coarse prominent interstitial markings are seen in both lungs mainly in the perihilar region. There is probable tiny left pleural effusion. No pneumothorax. Bones are normal. IMPRESSION: Coarse bilateral interstitial markings and perihilar regions . In correlation with recent CT angiogram chest, atypical pneumonia is suspected Electronically signed by: Hanna Cole MD (01/12/2021 11:13 AM) [id number] Heart Score C/O Chest Pain: Yes HEART Score for Chest Pain: HEART Score for Chest Pain Response (Comments) Value History Moderately Suspicious 1 ECG Nonspecific Repolarizatio 1 Age >45 - < 65 1 Risk Factors >3 Risk Factors or Hx CAD 2 Total 5 Risk Factors: Risk Factors: DM, Current or recent (<one month) smoker, HTN, HLP, family history of CAD, obesity. Risk Scores: Risk Factors: DM, Current or recent (<one month) smoker, HTN, HLP, family history of CAD, obesity. Course & Med Decision Making Course & Med Decision Making Airway patent, patient in respiratory distress and hypoxic on arrival, x2 large- bore peripheral IVs established while obtaining vitals that were concerning for hypoxia, tachypnea and hypotension History concerning for patient with known cardiovascular disease and x1 stent on Plavix with recent Covid diagnosis, hospitalization receiving azithromycin and Rocephin and outpatient treatment at home with 7 days of Levaquin. She completed 9 total days of dexamethasone therapy Comprehensive ER work-up obtained, concerning for ongoing respiratory impairment from recent COVID-19 infection in addition to LEXY. A total of 1.5 L IV normal saline administered with improvement in patient's hypotension. Patient immediately placed on high flow oxygen on ER arrival with improvement in hypoxia, this was subsequently titrated down with improvement in hypoxia and tachypnea but she still required supplemental O2 to keep saturations greater than 90% I discussed with patient complexity of case in need for pulmonology consultation, she agreed. I contacted hospitalist, Dr. Bueno, at [facility] and discussed need for transfer and admission and he agreed. Patient to be started on IV Zosyn and subcu heparin for DVT prophylaxis I updated patient on proposed plan of care that included hospital transfer via EMS to's [facility] for admission, she remained amenable. CODE STATUS was discussed with patient who had full capacity, she reiterated she wants to be DNR status All questions and concerns addressed prior to ER transportation via EMS to [facility] for admission Critical Care Time This patient required critical care. Due to the fact that the patient required a significant amount of one on one physician - patient contact time, ordering and review of studies, arranging urgent treatment with development of a management plan, evaluation of patients response to treatment with frequent reassessments, and discussions with other providers this patient required 55 minutes of critical care time. Critical care time was indicated due to the inherent instability and/or potential for instability in this patient. The critical care time that is allocated to this patient is above and beyond any time spent on any other billable procedures performed on this patient. Dragon Disclaimer Dragon Disclaimer This electronic medical record was generated, in whole or in part, using a voice recognition dictation system. Departure Departure: Impression: Primary Impression: COVID-19 virus infection Additional Impressions: Acute respiratory failure with hypoxia Acute kidney injury DNR (do not resuscitate) Disposition: 02 DC/TRF OTHER SHORT TERM HOS ([facility]) Admitting Physician: Other (dr bueno) Condition: STABLE Referrals: TRINI CASE (PCP) Problem Qualifiers DIANA MANZANO DO Jan 12, 2021 10:03
[2021-01-12] MEDS ORDERED: IPRATRPIUM/ALBUTEROL 0.5/2.5MG 3 ML NEBU. NEB ONE (10:45)
[2021-01-12] MEDS ORDERED: IV NORMAL SALINE 1,000ML 1,000 ML IV SCH (10:45)
[2021-01-12] MEDS ORDERED: ASPIRIN CHEWABLE 81 MG TABLET. PO ONE (10:45)
[2021-01-12 11:15] LABS: BASO % 0 % (0-3); EOS % 0 % (0-3); HEMATOCRIT 35.4 % (36.0-47.0); LYMPH # 0.6 x10^3/uL (1.0-4.8); LYMPH % 15 % (24-48); MEAN CORPUSCULAR HEMOGLOBIN 29 pg (25-35); MEAN CORPUSCULAR HGB CONC 34 g/dL (31-37); MEAN CORPUSCULAR VOLUME 85 fL (79-100); MONO # 0.2 x10^3/uL (0.0-1.1); MONO % 5 % (0-9); NEUT # 3.2 x10^3uL (1.8-7.7); NEUT % 80 % (31-73); PLATELET COUNT 246 x10^3/uL (140-400); RED BLOOD COUNT 4.16 x10^6/uL (3.50-5.40); RED CELL DISTRIBUTION WIDTH 14.7 % (11.5-14.5)
[2021-01-12] MEDS ORDERED: ALBUTEROL SULFATE 8GM INHALER. INH ONE (11:15)
--- NOTE | 2021-01-12 11:15 | RAD ---
Exam performed: One view chest. Indication: Reason: SHOB / Spl. Instructions: / History: Date of Service: 01/12/2021 10:46 AM Comparison: CT angiogram chest from 01/03/2021 and single view ch est from 2014. Single AP upright portable view chest findings: Cardiomediastinal silhouette is within limits of normal. Coarse prominent interstitial markings are s een in both lungs mainly in the perihilar region. There is probable tiny left pleural effusion. No pneumothorax. Bones are normal. IMPRESSION: Coarse bilateral interstitial markings and perihilar regions . In correlation with recent CT angiogr am chest, atypical pneumonia is suspected Electronically signed by: Hanna Cole MD (01/12/2021 11:13 AM) [id number]
[2021-01-12 11:16] LABS: BGAS PH 7.42 (7.35-7.45)
[2021-01-12 11:30] LABS: CALCIUM 9.4 mg/dL (8.5-10.1); CREATININE 1.8 mg/dL (0.6-1.0); GFR 28.4; POTASSIUM 3.8 mmol/L (3.5-5.1)
[2021-01-12] MEDS ORDERED: IV NORMAL SALINE 1,000ML 1,000 ML IV ONE (11:30)
[2021-01-12 11:42] LABS: ALBUMIN 3.5 g/dL (3.4-5.0); ALBUMIN/GLOBULIN RATIO 0.8 (1.0-1.7); TOTAL BILIRUBIN 0.6 mg/dL (0.2-1.0)
[2021-01-12] MEDS ORDERED: IV NORMAL SALINE 500ML 500 ML IV ONE (11:45)
--- NOTE | 2021-01-12 12:08 | EKG ---
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
[2021-01-12] MEDS ORDERED: PIPERACILLIN/TAZOBACTAM 4.5 GM in IV NORMAL SALINE 50ML 50 ML IV ONE (12:15)
[2021-01-12] MEDS ORDERED: HEPARIN for SUB-Q USE 5,000 UNIT/ML VIAL. SQ ONE (12:15)
[2021-01-12] MEDS ORDERED: PIPERACILLIN/TAZOBACTAM 4.5 GM VIAL IV ONE (12:21)
[2021-01-12] MEDS ORDERED: IV NORMAL SALINE 50ML 50 ML ONE (12:21)
[2021-01-12 14:00] VITALS: BP 100/70
== END 2021-01-12 15:10 | disposition short-term general hospital (02) ==
LOC: ER 09:56
DX: J96.01 Acute respiratory failure with hypoxia (principal); U07.1 COVID-19; N17.9 Acute kidney failure, unspecified; I25.10 Atherosclerotic heart disease of native coronary artery without angina pectoris; K21.9 Gastro-esophageal reflux disease without esophagitis; I10 Essential (primary) hypertension; Z66 Do not resuscitate; Z86.73 Personal history of transient ischemic attack (TIA), and cerebral infarction without residual deficits; Z88.2 Allergy status to sulfonamides
CPT/HCPCS: 36415; 71045; 80053; 82803; 83605; 83735; 83880; 84484; 85025; 87040; 93005; 94640; 96361; 96365; 96372; 99291; J1644; J2543; J7030; J7040